=== PATIENT | female | born 1990 | race Caucasian/White ===

== ENCOUNTER 2016-08-24 03:48 | Emergency (ER) | payer MEDICAID ==
[~2016-08-24] VITALS: Ht 157.5 cm; Wt 49.5 kg
[~2016-08-24 03:48] MED LIST: DOCU-144 PO; HYDR-3498 PO; MULT-552 PO; NITR-58 PO; ONDA4TAB35 PO
[2016-08-24 03:58] VITALS: Ht 157.5 cm; Wt 49.5 kg
[2016-08-24] MEDS ORDERED: SOD CHLORIDE 0.9% 1,000 ML IV STA (04:18)
[2016-08-24] MEDS ORDERED: ONDANSETRON 4 MG INJ IV STA (04:18)
[2016-08-24] MEDS ORDERED: ACETAMINOPHEN 500 MG TAB PO STA (04:18)
[2016-08-24] MEDS ORDERED: morphine 2 MG INJ IV STA (04:18)
[2016-08-24 04:30] LABS: ADD SCAN DIFF NO
--- NOTE | 2016-08-24 04:37 | ERD ---
ER Documentation Chief Complaint Date/Time DATE: 08/24/16 TIME: 04:35 Chief Complaint on and off vomiting x 1 week, also c/o low back pain HPI 26-year-old female presents here in emergency department for complaints of lower back pain abdominal pain and vomiting on and off for 1 week. Patient describes the pain as sharp pain, 6/10 scale, complaints with vomiting and on and off episodes of fever. Patient did not take any medications to help with symptoms. Patient denies any hematuria or dysuria. Patient denies any diarrhea or constipation. Patient denies any sick contacts. Patient states that she was lifting weights recently, and states may have caused her back pain. ROS All systems reviewed and are negative except as per history of present illness. Medications Home Meds Active Scripts Ondansetron (Ondansetron Odt) 4 Mg Tab.rapdis, 4 MG PO Q8 Y for NAUSEA AND/OR VOMITING, #30 TAB Prov:WARREN JONES NP 08/24/16 Cyclobenzaprine Hcl* (Cyclobenzaprine Hcl*) 10 Mg Tablet, 10 MG PO TID, #15 TAB Prov:WARREN JONES NP 08/24/16 Hydrocodone/Acetaminophen ([place] 5-325 Tablet) 1 Each Tablet, 1 TAB PO Q6H Y for SEVERE PAIN LEVEL 7-10, #20 TAB Prov:WARREN JONES NP 08/24/16 Docusate Sodium* (Colace*) 100 Mg Capsule, 100 MG PO TID, #30 CAP Prov:CRALOS SEPULVEDA 01/24/16 Multivitamins* (Once Daily*) 1 Tab Tablet, 1 TAB PO DAILY for 30 Days, TAB Prov:ALIN COOK MD 12/09/15 Nitrofurantoin Monohyd Macrocr* (Macrobid*) 100 Mg Capsr, 100 MG PO BID for 7 Days, CAP Prov:ALIN COOK MD 12/09/15 Ondansetron Hcl* (Zofran* ODT) 4 mg -ODT Tab.disper, 4 MG PO Q6 Y for NAUSEA AND /OR VOMITING, #30 TAB Prov:ALIN COOK MD 12/09/15 Hydrocodone Bit-Acetaminophen* ([place]*) 5-325 Mg Tab, 1 TAB PO Q6 Y for PAIN, # 7 TAB Prov:ALIN COOK MD 12/09/15 Allergies Allergies: Coded Allergies: No Known Allergy (Unverified , 08/24/16) PMhx/Soc Medical and Surgical Hx: pt denies Medical Hx, pt denies Surgical Hx History of Surgery: No Anesthesia Reaction: No Hx Neurological Disorder: No Hx Respiratory Disorders: No Hx Cardiac Disorders: No Hx Psychiatric Problems: No Hx Miscellaneous Medical Probl: No Hx Alcohol Use: No Hx Substance Use: No Hx Tobacco Use: No Smoking Status: Never smoker FmHx Family History: No coronary disease, No diabetes, No other Physical Exam Vitals Vital Signs Date Time Temp Pulse Resp B/P Pulse Ox O2 Delivery O2 Flow Rate FiO2 08/24/16 06:46 98.3 77 19 112/69 100 Room Air 08/24/16 03:58 100.0 100 20 113/63 99 Physical Exam GENERAL: The patient is well developed and appropriate for usual state of health, in no apparent distress. CHEST: Clear to auscultation bilaterally. There are no rales, wheezes or rhonchi. HEART: Regular rate and rhythm. No murmurs, clicks, rubs or gallops. No S3 or S4. ABDOMEN: Soft, nontender and nondistended. Good bowel sounds. No rebound or guarding. No gross peritonitis. No gross organomegaly or masses. No Camargo sign or McBurney point tenderness. BACK: No midline or flank tenderness. EXTREMITIES: Equal pulses bilaterally. There is no peripheral clubbing, cyanosis or edema. No focal swelling or erythema. Full range of motion. Grossly neurovascularly intact. NEURO: Alert and oriented. Cranial nerves 2-12 intact. Motor strength in all 4 extremities with 5/5 strength. Sensation grossly intact. Normal speech and gait. SKIN: There is no apparent rash or petechia. The skin is warm and dry. HEMATOLOGIC AND LYMPHATIC: There is no evidence of excessive bruising or lymphedema. No gross cervical, axillary, or inguinal lymphadenopathy. Result Diagram: 08/24/1642208/24/16422 Results 24 hrs Laboratory Tests Test 08/24/16 04:23 08/24/16 04:28 White Blood Count 9.810^3/ul Red Blood Count 4.0910^6/ul Hemoglobin 12.8g/dl Hematocrit 37.1% Mean Corpuscular Volume 90.7fl Mean Corpuscular Hemoglobin 31.3pg Mean Corpuscular Hemoglobin Concent 34.5g/dl Red Cell Distribution Width 12.1% Platelet Count 34752^3/UL Mean Platelet Volume 10.8fl Neutrophils % 80.5% Lymphocytes % 10.8% Monocytes % 7.4% Eosinophils % 0.7% Basophils % 0.1% Nucleated Red Blood Cells % 0.0/100WBC Neutrophils # 7.910^3/ul Lymphocytes # 1.110^3/ul Monocytes # 0.710^3/ul Eosinophils # 0.110^3/ul Basophils # 0.010^3/ul Nucleated Red Blood Cells # 0.010^3/ul Sodium Level 139mmol/L Potassium Level 4.2mmol/L Chloride Level 107mmol/L Carbon Dioxide Level 24mmol/L Anion Gap 12 Blood Urea Nitrogen 15mg/dl Creatinine 0.66mg/dl Glucose Level 104mg/dl Calcium Level 9.3mg/dl Total Bilirubin 0.4mg/dl Direct Bilirubin 0.00mg/dl Indirect Bilirubin 0.4mg/dl Aspartate Amino Transf (AST/SGOT) 25IU/L Alanine Aminotransferase (ALT/SGPT) 33IU/L Alkaline Phosphatase 112IU/L Total Protein 7.7g/dl Albumin 4.3g/dl Globulin 3.40g/dl Albumin/Globulin Ratio 1.26 Lipase 113U/L Urine Color LT. YELLOW Urine Clarity CLEAR Urine pH 6.0 Urine Specific [place] >=1.030 Urine Ketones NEGATIVE Urine Nitrite NEGATIVE Urine Bilirubin NEGATIVE Urine Urobilinogen 0.2 E.U./dL Urine Leukocyte Esterase NEGATIVE Urine Hemoglobin NEGATIVE Urine Glucose NEGATIVE% Urine Total Protein NEGATIVE Current Medications Medications (Trade) Dose Ordered Sig/Ml Route PRN Reason Start Time Stop Time Status Last Admin Dose Admin Sodium Chloride (NS) 1,000 ml @ 1,000 mls/hr Q1H STAT IV 08/24/16 04:18 08/24/16 05:17 DC 08/24/16 04:33 Morphine Sulfate (morphine) 2 mg ONCE STAT IV 08/24/16 04:18 08/24/16 04:20 DC 08/24/16 04:33 Ondansetron HCl (Zofran Inj) 4 mg ONCE STAT IV 08/24/16 04:18 08/24/16 04:20 DC 08/24/16 04:33 Acetaminophen (Tylenol Tab) 500 mg ONCE STAT PO 08/24/16 04:18 08/24/16 04:20 DC 08/24/16 04:33 Patient was given medication for pain here in emergency department, after treatment, patient verbalized feeling much better. Patient's pain is improved.Patient was given Zofran here in the emergency department. After treatment, patient was able to tolerate po fluids here in the emergency department without any vomiting. There is no signs and symptoms of dehydration. Normal saline IV bolus was given here in emergency department for rehydration, patient tolerated IV fluids.Patient was given medicines for fever control here in the emergency department. After treatment, patient temperature improved and lower. Patient appears well and is hemodynamically stable. PROCEDURE: CT ABDOMEN/PELVIS WITHOUT CONTRAST CLINICAL INDICATION: 26-year-old female with abdominal pain. TECHNIQUE: The study was performed utilizing a [employer] VCT 64-slice CT scanner. Direct axial sections were obtained through the abdomen and pelvis without the use of intravenous contrast material. Sagittal and coronal reformations were obtained. One or more of the following dose reduction techniques were utilized: automated exposure control, adjustment of the mA and/ or kV according to patient's size or use of iterative reconstruction technique. The images were reviewed on a PACS workstation. CTD/vol = 4.8 mGy; Total Exam DLP = 262.1 mGy-cm. COMPARISON: CT abdomen/pelvis January 24, 2016. FINDINGS: The lung bases are unremarkable. There is no evidence for significant pleural effusion. The liver has a normal size and contour without focal areas of abnormal density. No intrahepatic nor extrahepatic biliary ductal dilatation is seen. The gallbladder demonstrates no wall thickening nor pericholecystic fluid. No biliary stones are evident. The pancreas is without areas of abnormal attenuation. The spleen is identified and has a normal size without abnormal density. The adrenal glands are unremarkable. The kidneys are without abnormal density. No hydroureteronephrosis nor nephroureterolithiasis is evident. The urinary bladder contains urine. There is mild retained stool within the ascending and transverse colon without obstruction. The appendix is visualized and is without abnormal thickening or surrounding inflammatory reaction. The uterus is anteflexed. There is mild pelvic free fluid. The aortoiliac vessels are without aneurysmal dilatation. The osseous structures are intact. IMPRESSION: 1. No CT evidence for obstructive uropathy or renal calculi. 2. Mild retained stool without obstruction. 3. No CT evidence for appendicitis. 4. Mild pelvic free fluid. .Rian Breaux MD, MD Date Time Electronically viewed and signed by .Rian Breaux MD, on 08/24/2016 06:30 .M/ CC: WARREN JONES NP Procedures/MDM Medical Decision Making: Patient symptoms are nonspecific at this time can be musculoskeletal pain, can be viral. There is low suspicion for abdominal emergencies at this time. Patients abdominal exam is normal at this time. Patients radiology exam does not show any abdominal emergencies at this time. There is low suspicion for appendicitis, cholecystitis, abdominal aortic aneurysms or peritonitis at this time. There is low suspicion for sepsis. Patient appears well and is hemodynamically stable. Disposition: Home. Condition: Stable Prescription [place], Zofran Instructions: Patient is advised to take medications as prescribed. Patient is advised to rest, increase fluid intake and do brat diet for next 1-2 days and progress as tolerated. Patient is advised that if symptoms are worse, severe abdominal pain, uncontrolled vomiting, high fever, severe flank pain, worst signs and symptoms, to return to the emergency department immediately. Otherwise, patient can follow up with primary care doctor in 5-7 days. Departure Diagnosis: Primary Impression: Abdominal pain Abdominal location: lower abdomen, unspecified Qualified Code: R10.30 - Lower abdominal pain Additional Impressions: Vomiting Vomiting type: unspecified Vomiting Intractability: unspecified Nausea presence: unspecified Qualified Code: R11.10 - Vomiting, intractability of vomiting not specified, presence of nausea not specified, unspecified vomiting type Flank pain Condition: Stable Patient Instructions: Abdominal Pain, Flank Pain, Uncertain Cause, Nausea and Vomiting-Adult WARREN OJNES NP Aug 24, 2016 04:37
[2016-08-24 04:45] LABS: BASOPHILS % 0.1 % (0.0-2.0); EOSINOPHILS # 0.1 10^3/ul (0.0-0.5); EOSINOPHILS % 0.7 % (0.0-7.0); HEMATOCRIT 37.1 % (37.0-47.0); HEMOGLOBIN 12.8 g/dl (12.0-16.0); LYMPHOCYTES # 1.1 10^3/ul (0.8-2.9); LYMPHOCYTES % 10.8 % (15.0-51.0); MEAN CORPUSCULAR HEMOGLOBIN 31.3 pg (29.0-33.0); MEAN CORPUSCULAR HGB CONC 34.5 g/dl (32.0-37.0); MEAN CORPUSCULAR VOLUME 90.7 fl (82.0-101.0); MEAN PLATELET VOLUME 10.8 fl (7.4-10.4); MONOCYTE # 0.7 10^3/ul (0.3-0.9); MONOCYTES % 7.4 % (0.0-11.0); NEUTROPHIL # 7.9 10^3/ul (1.6-7.5); NEUTROPHILS % 80.5 % (39.0-77.0); PLATELET COUNT 184 10^3/UL (140-415); RED BLOOD COUNT 4.09 10^6/ul (4.20-5.40); RED CELL DISTRIBUTION WIDTH 12.1 % (11.5-14.5); WHITE BLOOD COUNT 9.8 10^3/ul (4.8-10.8)
[2016-08-24 04:51] LABS: ALBUMIN 4.3 g/dl (3.3-4.9); ALBUMIN/GLOBULIN RATIO 1.26; BILIRUBIN,INDIRECT 0.4 mg/dl (0-1.1); BILIRUBIN,TOTAL 0.4 mg/dl (0.2-1.3); CALCIUM 9.3 mg/dl (8.4-10.2); CREATININE 0.66 mg/dl (0.44-1.00); POTASSIUM 4.2 mmol/L (3.5-5.1); TOTAL PROTEIN 7.7 g/dl (6.1-8.1)
[2016-08-24 05:18] LABS: ADD UMIC NO; URINE BILIRUBIN (Dip) NEGATIVE (NEGATIVE); URINE BLOOD (Dip) NEGATIVE (NEGATIVE); URINE COLOR LT. YELLOW (YELLOW); URINE GLUCOSE (Dip) NEGATIVE (NEGATIVE); URINE KETONES (Dip) NEGATIVE (NEGATIVE); URINE LEUKOCYTE ESTERASE (Dip) NEGATIVE (NEGATIVE); URINE NITRITE (Dip) NEGATIVE (NEGATIVE); URINE TOTAL PROTEIN (Dip) NEGATIVE (NEGATIVE); URINE UROBILINOGEN (Dip) 0.2 E.U./dL (0.1-1.0)
[2016-08-24] MEDS ORDERED: ONDA4TAB14 PO (06:02)
[2016-08-24] MEDS ORDERED: HYDR-906 PO (06:02)
[2016-08-24] MEDS ORDERED: CYCL-319 PO (06:02)
--- NOTE | 2016-08-24 06:30 | RADRPT ---
PROCEDURE: CT ABDOMEN/PELVIS WITHOUT CONTRAST CLINICAL INDICATION: 26-year-old female with abdominal pain. TECHNIQUE: The study was performed utilizing a GE [employer] VCT 64-slice CT scanner. Direct axia l sections were obtained through the abdomen and pelvis without the use of intravenous contrast mate rial. Sagittal and coronal reformations were obtained. One or more of the following dose reduction t echniques were utilized: automated exposure control, adjustment of the mA and/or kV according to pat ient's size or use of iterative reconstruction technique. The images were reviewed on a PACS workst [employer]. CTD/vol = 4.8 mGy; Total Exam DLP = 262.1 mGy-cm. COMPARISON: CT abdomen/pelvis January 24, 2016. FINDINGS: The lung bases are unremarkable. There is no evidence for significant pleural effusion. The liver has a normal size and contour without focal areas of abnormal density. No intrahepatic nor extrahepa tic biliary ductal dilatation is seen. The gallbladder demonstrates no wall thickening nor perichole cystic fluid. No biliary stones are evident. The pancreas is without areas of abnormal attenuation. The spleen is identified and has a normal size without abnormal density. The adrenal glands are unr emarkable. The kidneys are without abnormal density. No hydroureteronephrosis nor nephroureterolithi asis is evident. The urinary bladder contains urine. There is mild retained stool within the ascendi ng and transverse colon without obstruction. The appendix is visualized and is without abnormal thi ckening or surrounding inflammatory reaction. The uterus is anteflexed. There is mild pelvic free f luid. The aortoiliac vessels are without aneurysmal dilatation. The osseous structures are intact. IMPRESSION: 1. No CT evidence for obstructive uropathy or renal calculi. 2. Mild retained stool without obstruction. 3. No CT evidence for appendicitis. 4. Mild pelvic free fluid. .Rian Breaux MD, Date Time Electronically viewed and signed by .Rian Breaux MD, MD on 08/24/2016 06:30 .Mookie
[2016-08-24 06:46] VITALS: BP 112/69; PULSE 77; RESP 19; TEMP 98.3
[2016-08-25] MEDS ORDERED: IBUP-1542 PO (18:07)
[2016-08-25] MEDS ORDERED: LEVO500T72 PO (18:07)
[2016-08-25] MEDS ORDERED: OXYC-279 PO (18:09)
== END 2016-08-24 06:49 | disposition home or self-care (01) ==
LOC: FTE 03:48
DX: R10.30 Lower abdominal pain, unspecified (principal); R11.10 Vomiting, unspecified
CPT/HCPCS: 36415; 74176; 80053; 81003; 83690; 85025; 96374; 96375; J2270; J2405; J7030; Z7502; Z7610

== ENCOUNTER 2016-08-25 14:55 | Emergency (ER) | payer MEDICAID ==
[~2016-08-25] VITALS: Ht 160 cm; Wt 49.5 kg
[~2016-08-25 14:55] MED LIST changes: +CYCL-319 PO; +HYDR-906 PO; +ONDA4TAB14 PO
[2016-08-25 15:10] VITALS: Ht 160 cm; Wt 49.5 kg
[2016-08-25] MEDS ORDERED: KETOROLAC 15 MG INJ IV STA (16:16)
[2016-08-25] MEDS ORDERED: ONDANSETRON 4 MG INJ IV STA (16:16)
[2016-08-25] MEDS ORDERED: SOD CHLORIDE 0.9% 1,000 ML IV STA (16:16)
[2016-08-25] MEDS ORDERED: CEFTRIAXONE 1 GM/50 ML (PMX) 50 ML IVPB ONE (16:30)
[2016-08-25 16:47] LABS: ADD SCAN DIFF NO
[2016-08-25 16:51] LABS: HEMATOCRIT 37.7 % (37.0-47.0); HEMOGLOBIN 12.7 g/dl (12.0-16.0); LYMPHOCYTES % 9.9 % (15.0-51.0); MEAN CORPUSCULAR HEMOGLOBIN 30.2 pg (29.0-33.0); MEAN CORPUSCULAR HGB CONC 33.7 g/dl (32.0-37.0); MEAN CORPUSCULAR VOLUME 89.8 fl (82.0-101.0); MEAN PLATELET VOLUME 10.3 fl (7.4-10.4); MONOCYTES % 9.4 % (0.0-11.0); NEUTROPHIL # 8.3 10^3/ul (1.6-7.5); NEUTROPHILS % 80.4 % (39.0-77.0); PLATELET COUNT 175 10^3/UL (140-415); WHITE BLOOD COUNT 10.4 10^3/ul (4.8-10.8)
[2016-08-25 17:05] LABS: ALBUMIN 4.2 g/dl (3.3-4.9)
[2016-08-25 17:06] LABS: POTASSIUM 3.6 mmol/L (3.5-5.1)
[2016-08-25 17:08] LABS: ALBUMIN/GLOBULIN RATIO 1.2; BILIRUBIN,INDIRECT 0.7 mg/dl (0-1.1); BILIRUBIN,TOTAL 0.7 mg/dl (0.2-1.3); CALCIUM 8.8 mg/dl (8.4-10.2); CREATININE 0.75 mg/dl (0.44-1.00); TOTAL PROTEIN 7.7 g/dl (6.1-8.1)
[2016-08-25] MEDS ORDERED: morphine 4 MG/ML VIAL IV STA (17:08)
[2016-08-25 17:13] LABS: ADD UMIC YES; URINE BILIRUBIN (Dip) NEGATIVE (NEGATIVE); URINE BLOOD (Dip) 3+ (NEGATIVE); URINE COLOR LT. YELLOW (YELLOW); URINE GLUCOSE (Dip) NEGATIVE (NEGATIVE); URINE KETONES (Dip) 3+ (NEGATIVE); URINE LEUKOCYTE ESTERASE (Dip) 1+ (NEGATIVE); URINE NITRITE (Dip) NEGATIVE (NEGATIVE); URINE TOTAL PROTEIN (Dip) NEGATIVE (NEGATIVE); URINE UROBILINOGEN (Dip) 0.2 E.U./dL (0.1-1.0)
[2016-08-25 17:27] LABS: BACTERIA,URINE MODERATE; MUCUS,URINE FEW; SQUAMOUS EPITHELIAL CELL,UR MODERATE
--- NOTE | 2016-08-25 17:37 | RADRPT ---
PROCEDURE: CT scan of the abdomen and pelvis without IV contrast. CLINICAL INDICATION: Abdominal pain. TECHNIQUE: Thin section axial, coronal and sagittal images were performed through the abdomen and pelvis without contrast. Radiation Dose: CTDI: 4.85 and DLP: 256 One or more of the following dose reduction techniques were used: - Automated exposure control. - Adjustment of the mA and/or kV according to patient size. Use of iterative reconstruction technique. COMPARISON: Chest x-ray 06/07/2016 06:18 a.m. FINDINGS: Soft tissues: Bilateral asymmetric extremely dense breast tissue is identified. The soft tissues are otherwise normal. Lungs and pleural spaces: There is peribronchial cuffing pain bilateral ground-glass infiltrates in the bases of the lungs. There is a 3.4 mm calcified granuloma in the right lower lobe. This is of the field of view on the prior study. No pleural effusion is identified. Heart: The heart is normal in size. The liver, common bile duct and gallbladder: The liver measures 13 cm AP. No hepatic mass or intra hepatic biliary ductal dilatation is identified. The gallbladder and gallbladder wall are normal. Gastrointestinal: There is no hiatal hernia. The stomach is incompletely distended. The small michael l loops are normal. There is scattered air and fecal material in the colon. The vermiform appendix is normal. There is no evidence of diverticulosis or diverticulitis. Pancreas: Normal. The extrahepatic common bile duct is normal measuring 4 mm. Kidneys, bladder and adrenal glands : The adrenal glands and kidneys are normal. Spleen: The spleen is normal. Lymph nodes: No enlarged retroperitoneal, periportal, mesenteric or pelvic sidewall lymph nodes are identified. No enlarged inguinal lymph node is identified. Reproductive system and pelvis : The uterus is anteflexed measuring 10.1 cm sagittal by 5 cm AP by 6 .8 cm transverse. No abnormal adnexal mass is identified. There is moderate fluid in the cul-de-sac which is slightly greater when compared to the prior study. The ovaries are not visualized. Bony elements: Normal. Vasculature: Normal. IMPRESSION: 1. There is a small to moderate amount of fluid in the cul-de-sac. This is slightly greater as com pared to 01/24/2016. 2. No acute intra-abdominal process is identified. There is no evidence of appendicitis, diverticu litis or diverticulosis. The vermiform appendix is not clearly visualized. 3. 3.4 mm calcified granuloma in the right lower lobe. Ground-glass infiltrates in the bases of th e lungs is likely result of atelectasis. 4. No significant changes noted compared to to CT abdomen pelvis dated 01/24/2016. A small bowel e nteritis would not be easily detected on this study that might be better visualized if oral contrast was administered. RPTAT:AAJJ Darryl Moran Physician Date Time Electronically viewed and signed by Darryl Moran, Physician on 08/25/2016 17:36 GIANNA/
[2016-08-25] MEDS ORDERED: IBUP-1542 PO (18:07)
[2016-08-25] MEDS ORDERED: LEVO500T72 PO (18:07)
[2016-08-25] MEDS ORDERED: OXYC-279 PO (18:09)
[2016-08-25 18:32] VITALS: BP 127/73; PULSE 89; RESP 16; TEMP 98.7
--- NOTE | 2016-08-25 22:46 | ERD ---
ER Documentation Chief Complaint Date/Time DATE: 08/25/16 TIME: 22:[address], FEVER, MALAISE SINCE YESTERDAY. TYLENOL TAKEN CODIFIER AT 1200. HPI 26-year-old woman presents with 1 day of fever, weakness, body aches, sore throat and pain with swallowing. She denies cough, no rash, no vaginal discharge, no chest pain or shortness of breath, no headache or blurry vision, no neck pain or stiffness. She denies recent travel, sick contacts, or recent antibiotic use. ROS All systems reviewed and are negative except as per history of present illness. Medications Home Meds Active Scripts Oxycodone HCl/Acetaminophen (Percocet 5-325 mg Tablet) 1 Each Tablet, 1 EACH PO TID for PAIN LEVEL 6-10, #9 TAB Prov:MICHELE HORTON MD 08/25/16 Ibuprofen* (Motrin*) 600 Mg Tab, 600 MG PO Q8 for FEVER, #30 TAB Prov:MICHELE HORTON MD 08/25/16 Levofloxacin* (Levaquin*) 500 Mg Tablet, 500 MG PO DAILY for 7 Days, TAB Prov:MICHELE HORTON MD 08/25/16 Ondansetron (Ondansetron Odt) 4 Mg Tab.rapdis, 4 MG PO Q8 Y for NAUSEA AND/OR VOMITING, #30 TAB Prov:WARREN JONES NP 08/24/16 Cyclobenzaprine Hcl* (Cyclobenzaprine Hcl*) 10 Mg Tablet, 10 MG PO TID, #15 TAB Prov:WARREN JONES NP 08/24/16 Hydrocodone/Acetaminophen ([place] 5-325 Tablet) 1 Each Tablet, 1 TAB PO Q6H Y for SEVERE PAIN LEVEL 7-10, #20 TAB Prov:WARREN JONES NP 08/24/16 Docusate Sodium* (Colace*) 100 Mg Capsule, 100 MG PO TID, #30 CAP Prov:CARLOS SEPULVEDA 01/24/16 Multivitamins* (Once Daily*) 1 Tab Tablet, 1 TAB PO DAILY for 30 Days, TAB Prov:ALIN COOK MD 12/09/15 Nitrofurantoin Monohyd Macrocr* (Macrobid*) 100 Mg Capsr, 100 MG PO BID for 7 Days, CAP Prov:ALIN COOK MD 12/09/15 Ondansetron Hcl* (Zofran* ODT) 4 mg -ODT Tab.disper, 4 MG PO Q6 Y for NAUSEA AND /OR VOMITING, #30 TAB Prov:ALIN COOK MD 12/09/15 Hydrocodone Bit-Acetaminophen* ([place]*) 5-325 Mg Tab, 1 TAB PO Q6 Y for PAIN, # 7 TAB Prov:ALIN COOK MD 12/09/15 Allergies Allergies: Coded Allergies: No Known Allergy (Unverified , 08/24/16) PMhx/Soc None History of Surgery: No Anesthesia Reaction: No Hx Neurological Disorder: No Hx Respiratory Disorders: No Hx Cardiac Disorders: No Hx Psychiatric Problems: No Hx Miscellaneous Medical Probl: No Hx Alcohol Use: No Hx Substance Use: No Hx Tobacco Use: No Smoking Status: Never smoker FmHx Family History: No diabetes Physical Exam Vitals Vital Signs Date Time Temp Pulse Resp B/P Pulse Ox O2 Delivery O2 Flow Rate FiO2 08/25/16 18:32 98.7 89 16 127/73 98 Room Air 08/25/16 15:10 102.5 119 16 131/77 98 Physical Exam GENERAL: Well-developed, well-nourished, febrile HEENT: Moist mucous membranes, pink conjunctiva, no cervical spine tenderness or step-off deformities, no goiter, no jaundice or icterus, extraocular movements intact without pain. Positive pharyngeal erythema with exudates, uvula is midline NEURO: Alert and oriented 3, cranial nerves II through XII intact bilaterally, pupils equal round reactive to light, no focal deficits or facial asymmetry, sensation intact distally Strength 5/5 in upper and lower extremities bilaterally CARDIAC: Tachycardic and regular, no murmurs rubs or gallops LUNGS: Clear bilaterally no wheezing crackles or stridor ABDOMEN: Soft nontender, no guarding, no rigidity, no rebound, no psoas sign no obturator sign. Normoactive bowel sounds SKIN: Warm and dry to touch, no abrasions, contusions, or hematomas, no lacerations, no ecchymosis, no target lesions, and without ulcers EXTREMITIES: No clubbing cyanosis or edema, calves are bilaterally symmetrical, no Homans sign, no popliteal cord sign. Distal pulses equal and bilateral PSYCH: Normal affect without agitation or irritability Result Diagram: 08/25/16 1640 08/25/16 1640 Results 24 hrs Laboratory Tests Test 08/25/16 16:30 08/25/16 16:40 Urine Color LT. YELLOW Urine Clarity SLIGHTLY CLOUDY Urine pH 5.5 Urine Specific [place] 1.020 Urine Ketones 3+ Urine Nitrite NEGATIVE Urine Bilirubin NEGATIVE Urine Urobilinogen 0.2 E.U./dL Urine Leukocyte Esterase 1+ Urine Microscopic RBC 5-10/HPF Urine Microscopic WBC 5-10/HPF Urine Squamous Epithelial Cells MODERATE Urine Bacteria MODERATE Urine Mucus FEW Urine Hemoglobin 3+ Urine Glucose NEGATIVE% Urine Total Protein NEGATIVE White Blood Count 10.410^3/ul Red Blood Count 4.2010^6/ul Hemoglobin 12.7g/dl Hematocrit 37.7% Mean Corpuscular Volume 89.8fl Mean Corpuscular Hemoglobin 30.2pg Mean Corpuscular Hemoglobin Concent 33.7g/dl Red Cell Distribution Width 12.0% Platelet Count 06327^3/UL Mean Platelet Volume 10.3fl Neutrophils % 80.4% Lymphocytes % 9.9% Monocytes % 9.4% Eosinophils % 0.0% Basophils % 0.0% Nucleated Red Blood Cells % 0.0/100WBC Neutrophils # 8.310^3/ul Lymphocytes # 1.010^3/ul Monocytes # 1.010^3/ul Eosinophils # 0.010^3/ul Basophils # 0.010^3/ul Nucleated Red Blood Cells # 0.010^3/ul Sodium Level 139mmol/L Potassium Level 3.6mmol/L Chloride Level 100mmol/L Carbon Dioxide Level 25mmol/L Anion Gap 18 Blood Urea Nitrogen 6mg/dl Creatinine 0.75mg/dl Glucose Level 105mg/dl Calcium Level 8.8mg/dl Total Bilirubin 0.7mg/dl Direct Bilirubin 0.00mg/dl Indirect Bilirubin 0.7mg/dl Aspartate Amino Transf (AST/SGOT) 26IU/L Alanine Aminotransferase (ALT/SGPT) 32IU/L Alkaline Phosphatase 72IU/L Total Protein 7.7g/dl Albumin 4.2g/dl Globulin 3.50g/dl Albumin/Globulin Ratio 1.20 Lipase 36U/L Current Medications Medications (Trade) Dose Ordered Sig/Ml Route PRN Reason Start Time Stop Time Status Last Admin Dose Admin Sodium Chloride (NS) 1,000 ml @ 2,000 mls/hr Q30M STAT IV 08/25/16 16:16 08/25/16 16:45 DC 08/25/16 16:35 Ondansetron HCl (Zofran Inj) 4 mg ONCE STAT IV 08/25/16 16:16 08/25/16 16:18 DC 08/25/16 16:30 Ketorolac Tromethamine 15 mg 15 mg ONCE STAT IV 08/25/16 16:16 08/25/16 16:18 DC 08/25/16 16:30 Ceftriaxone Sodium (Rocephin) 50 ml @ 100 mls/hr ONCE ONCE IVPB 08/25/16 16:30 08/25/16 16:59 DC 08/25/16 16:30 Morphine Sulfate (morphine) 4 mg ONCE STAT IV 08/25/16 17:08 08/25/16 17:11 DC 08/25/16 17:45 Procedures/MDM IV line was established patient was placed on environmental monitoring technician rhythm strip revealed a sinus tachycardia at 120 bpm with upright P and T waves. Patient was febrile. Given her high fever, body aches, and low back pain and a CT scan of abdomen and pelvis was performed that was negative for acute inflammatory infectious pathology. Please refer to radiologist dictation for full report. I administered 2 L normal saline intravenously, Toradol 15 mg IV, Zofran 4 mg IV , and ceftriaxone 1 g IV. For later complaints of throat pain I administered morphine 4 mg IV with good pain control. Chest X-ray 1V Interpreted by me: Soft Tissue: No acute abnormalities Bones: No acute abnormalities Mediastinum/Cardiac Silhouette/Lungs: No acute abnormalities CBC and electrolytes were unremarkable, liver function tests are normal, test negative, urine analysis was positive for infection leukocytes and elevated urine WBCs. Patient was treated here with ceftriaxone 1 g IV I will be prescribing her levofloxacin 500 mg daily 7 days for UTI and streptococcal pharyngitis. Differential diagnoses considered, included but not limited to acute coronary syndrome, pulmonary embolism, aortic dissection, abdominal aortic aneurysm, sepsis, stroke, meningitis, encephalitis, pneumonia, appendicitis, cholecystitis , bowel obstruction, pyelonephritis, nephrolithiasis, cystitis, as well as metabolic, hematologic, and electrolyte abnormalities. As well as abscess, cellulitis, fractures, and dislocations. Patient feels much better at this time, and vital signs are normal, symptoms have improved. I did give strict instructions to return to the ED if symptoms continue or worsen, patient will otherwise follow-up with primary care physician. Patient understood instructions and agreed to plan. Departure Diagnosis: Primary Impression: UTI (urinary tract infection) Urinary tract infection type: acute cystitis Hematuria presence: without hematuria Qualified Code: N30.00 - Acute cystitis without hematuria Additional Impression: Pharyngitis Pharyngitis/tonsillitis etiology: unspecified etiology Qualified Code: J02.9 - Pharyngitis, unspecified etiology Condition: Good Patient Instructions: Pharyngitis, Strep (Presumed), Bladder Infection, Female (Adult) MICHELE HORTON MD Aug 25, 2016 22:46
== END 2016-08-25 18:35 | disposition home or self-care (01) ==
LOC: FTE 14:55
DX: N30.00 Acute cystitis without hematuria (principal)
CPT/HCPCS: 36415; 74176; 80053; 81001; 83690; 85025; 87086; 96374; 96375; J0696; J1885; J2270; J2405; J7030; Z7502; 81003

== ENCOUNTER 2017-01-15 09:08 | Emergency (ER) | payer MEDICAID ==
[~2017-01-15] VITALS: Wt 54.0 kg
[~2017-01-15 09:08] MED LIST changes: +IBUP-1542 PO; +LEVO500T72 PO; +OXYC-279 PO
--- NOTE | 2017-01-15 10:35 | ERD ---
ER Documentation Chief Complaint Date/Time DATE: 01/15/17 TIME: 10:34 Chief Complaint PAIN WITH URINATION X3 DAYS HPI 26-year-old female presents with painful urination urgency and suprapubic abdominal pain for 3 days. She describes burning pain upon urination, slight urgency as well. She also has a frontal pressure-like headache with this. She reports sharp pain in the suprapubic region, no fevers or chills, vomiting or diarrhea. ROS All systems reviewed and are negative except as per history of present illness. Medications Home Meds Active Scripts Nitrofurantoin Monohyd Macrocr* (Macrobid*) 100 Mg Capsr, 100 MG PO BID for 7 Days, CAP Prov:YIMI BOONE PA-C 01/15/17 Oxycodone HCl/Acetaminophen (Percocet 5-325 mg Tablet) 1 Each Tablet, 1 EACH PO TID for PAIN LEVEL 6-10, #9 TAB Prov:MICHELE HORTON MD 08/25/16 Ibuprofen* (Motrin*) 600 Mg Tab, 600 MG PO Q8 for FEVER, #30 TAB Prov:MICHELE HORTON MD 08/25/16 Levofloxacin* (Levaquin*) 500 Mg Tablet, 500 MG PO DAILY for 7 Days, TAB Prov:MICHELE HORTON MD 08/25/16 Ondansetron (Ondansetron Odt) 4 Mg Tab.rapdis, 4 MG PO Q8 Y for NAUSEA AND/OR VOMITING, #30 TAB Prov:WARREN JONES NP 08/24/16 Cyclobenzaprine Hcl* (Cyclobenzaprine Hcl*) 10 Mg Tablet, 10 MG PO TID, #15 TAB Prov:WARREN JONES NP 08/24/16 Hydrocodone/Acetaminophen ([place] 5-325 Tablet) 1 Each Tablet, 1 TAB PO Q6H Y for SEVERE PAIN LEVEL 7-10, #20 TAB Prov:WARREN JONES NP 08/24/16 Docusate Sodium* (Colace*) 100 Mg Capsule, 100 MG PO TID, #30 CAP Prov:CARLOS SEPULVEDA 01/24/16 Multivitamins* (Once Daily*) 1 Tab Tablet, 1 TAB PO DAILY for 30 Days, TAB Prov:ALIN COOK MD 12/09/15 Nitrofurantoin Monohyd Macrocr* (Macrobid*) 100 Mg Capsr, 100 MG PO BID for 7 Days, CAP Prov:ALIN COOK MD 12/09/15 Ondansetron Hcl* (Zofran* ODT) 4 mg -ODT Tab.disper, 4 MG PO Q6 Y for NAUSEA AND /OR VOMITING, #30 TAB Prov:ALIN COOK MD 12/09/15 Hydrocodone Bit-Acetaminophen* ([place]*) 5-325 Mg Tab, 1 TAB PO Q6 Y for PAIN, # 7 TAB Prov:ALIN COOK MD 12/09/15 Allergies Allergies: Coded Allergies: No Known Allergy (Unverified , 01/15/17) PMhx/Soc Medical and Surgical Hx: pt denies Medical Hx, pt denies Surgical Hx History of Surgery: No Anesthesia Reaction: No Hx Neurological Disorder: No Hx Respiratory Disorders: No Hx Cardiac Disorders: No Hx Psychiatric Problems: No Hx Miscellaneous Medical Probl: No Hx Alcohol Use: No Hx Substance Use: No Hx Tobacco Use: No Smoking Status: Never smoker Physical Exam Vitals Vital Signs Date Time Temp Pulse Resp B/P Pulse Ox O2 Delivery O2 Flow Rate FiO2 01/15/17 09:14 98.0 75 17 110/53 99 Physical Exam General: Well-developed, well-nourished. The patient appears in no acute distress. HEENT: Head is normocephalic, atraumatic. No scleral icterus\ Neck: Supple. Nontender. Lungs: Clear to auscultation. Normal air movement. Heart: Regular rate and rhythm. S1 and S2 are normal. No murmurs, gallops, or rubs. Abdomen: Soft tender to palpation in the suprapubic region only, without rebound , guarding or tenderness McBurney's nondistended. Bowel sounds are normoactive. Extremities: No clubbing or cyanosis. Normal pulses. Moving extremities x 4. No weakness. Neurologic: Alert and oriented 3. No focal deficits. Skin: Normal turgor. No rash or lesions. Results 24 hrs Laboratory Tests Test 01/15/17 10:37 Urine Color YELLOW Urine Clarity CLOUDY Urine pH 6.0 Urine Specific [place] 1.026 Urine Ketones NEGATIVEmg/dL Urine Nitrite NEGATIVEmg/dL Urine Bilirubin NEGATIVEmg/dL Urine Urobilinogen NEGATIVEmg/dL Urine Leukocyte Esterase 3+Lisa/ul Urine Microscopic RBC > 182/HPF Urine Microscopic WBC > 182/HPF Urine Squamous Epithelial Cells FEW/HPF Urine Hemoglobin 3+mg/dL Urine Glucose NEGATIVEmg/dL Urine Total Protein 2+mg/dl Urine Test NEGATIVE Current Medications Medications (Trade) Dose Ordered Sig/Ml Route PRN Reason Start Time Stop Time Status Last Admin Dose Admin Nitrofurantoin Macrocrystals (Macrobid) 100 mg ONCE ONCE PO 01/15/17 11:30 01/15/17 11:31 01/15/17 11:22 Procedures/MDM 26-year-old female presents with painful urination, significant abdominal pain with evidence of a urinary tract infection and a urine analysis, was given Macrobid and will be continued at home. Patient does not have any systemic complaints, no signs of pyelonephritis, sepsis, acute appendicitis, ovarian torsion, PID, cervicitis. Departure Diagnosis: Primary Impression: UTI (urinary tract infection) Condition: Good YIMI BOONE PA-C Jan 15, 2017 10:35
[2017-01-15 11:02] LABS: ADD UMIC YES; UR ASCORBIC ACID NEGATIVE (NEGATIVE); UR BILIRUBIN (Dip) NEGATIVE (NEGATIVE); UR BLOOD (Dip) 3+ mg/dL (NEGATIVE); UR CLARITY CLOUDY (CLEAR); UR COLOR YELLOW (YELLOW); UR GLUCOSE (Dip) NEGATIVE (NEGATIVE); UR KETONES (Dip) NEGATIVE (NEGATIVE); UR LEUKOCYTE ESTERASE (Dip) 3+ Leu/ul (NEGATIVE); UR NITRITE (Dip) NEGATIVE (NEGATIVE); UR RBC > 182 /HPF (0-5); UR SPECIFIC GRAVITY (Dip) 1.026 (1.003-1.030); UR SQUAMOUS EPITHELIAL CELL FEW /HPF (FEW); UR TOTAL PROTEIN (Dip) 2+ mg/dl (NEGATIVE); UR UROBILINOGEN (Dip) NEGATIVE (NEGATIVE)
[2017-01-15] MEDS ORDERED: NITR-58 PO (11:16)
[2017-01-15] MEDS ORDERED: NITROFURANTOIN (SR) 100 MG CAP PO ONE (11:30)
== END 2017-01-15 11:25 | disposition home or self-care (01) ==
LOC: FTE 09:08
DX: N39.0 Urinary tract infection, site not specified (principal)
CPT/HCPCS: 81001; 84703; Z7502; Z7610; 99283

== ENCOUNTER 2017-04-28 14:33 | Emergency (ER) | payer MEDICAID ==
[~2017-04-28] VITALS: Ht 152.4 cm; Wt 50.2 kg
[2017-04-28 14:43] VITALS: Ht 152.4 cm; Wt 50.2 kg
[2017-04-28] MEDS ORDERED: SOD CHLORIDE 0.9% 500 ML IV STA (16:59)
[2017-04-28] MEDS ORDERED: ONDANSETRON 4 MG INJ IV STA ×2 (16:59→17:03)
[2017-04-28] MEDS ORDERED: FAMOTIDINE 20 MG INJ IV STA (16:59)
--- NOTE | 2017-04-28 16:59 | ERD ---
ER Documentation Chief Complaint Chief Complaint VOMITING WITH ABD CRAMPS , 2 MONTHS PREG HPI 27-year-old female, with LMP 03/05/17, presents to the emergency department complaining of persistent nausea and vomiting for the last 4 weeks. The patient denies fevers, chills, headache, abdominal pain, no vaginal bleeding , no vaginal discharge. Established care. ROS A 12-point review of systems was performed and negative other than presented in the history of present illness. SYSTEMIC symptoms: no fever, chills, no night sweats, no weight loss EYE symptoms: No blurred vision, no eye discharge OTOLARYNGEAL symptoms: No hearing loss. No ear pain, no sore throat CARDIOVASCULAR symptoms: No chest pain or discomfort, no palpitations. PULMONARY symptoms: No dyspnea, no cough, no wheezing. GASTROINTESTINAL symptoms: Per HPI MUSCULOSKELETAL symptoms: No arthralgias, no muscle aches. NEUROLOGY symptoms: No confusion, no syncope, no numbness or tingling. SKIN: No rashes Medications Home Meds Active Scripts Doxylamine/Pyridoxine Hcl ([place]LE[place] DR 10-10 MG TABLET) 1 Each Tablet.dr, 2 TAB PO QHS for NAUSEA for 14 Days, TAB Prov:LIANA HALL MD 04/28/17 Nitrofurantoin Monohyd Macrocr* (Macrobid*) 100 Mg Capsr, 100 MG PO BID for 7 Days, CAP Prov:LIANA HALL MD 04/28/17 Nitrofurantoin Monohyd Macrocr* (Macrobid*) 100 Mg Capsr, 100 MG PO BID for 7 Days, CAP Prov:YIMI BOONE PA-C 01/15/17 Oxycodone HCl/Acetaminophen (Percocet 5-325 mg Tablet) 1 Each Tablet, 1 EACH PO TID for PAIN LEVEL 6-10, #9 TAB Prov:MICHELE HORTON MD 08/25/16 Ibuprofen* (Motrin*) 600 Mg Tab, 600 MG PO Q8 for FEVER, #30 TAB Prov:MICHELE HORTON MD 08/25/16 Levofloxacin* (Levaquin*) 500 Mg Tablet, 500 MG PO DAILY for 7 Days, TAB Prov:MICHELE HORTON MD 08/25/16 Ondansetron (Ondansetron Odt) 4 Mg Tab.rapdis, 4 MG PO Q8 Y for NAUSEA AND/OR VOMITING, #30 TAB Prov:WARREN JONES NP 08/24/16 Cyclobenzaprine Hcl* (Cyclobenzaprine Hcl*) 10 Mg Tablet, 10 MG PO TID, #15 TAB Prov:WARREN JONES NP 08/24/16 Hydrocodone/Acetaminophen ([place] 5-325 Tablet) 1 Each Tablet, 1 TAB PO Q6H Y for SEVERE PAIN LEVEL 7-10, #20 TAB Prov:WARREN JONES [employer]IST 08/24/16 Docusate Sodium* (Colace*) 100 Mg Capsule, 100 MG PO TID, #30 CAP Prov:CARLOS SEPULVEDA 01/24/16 Multivitamins* (Once Daily*) 1 Tab Tablet, 1 TAB PO DAILY for 30 Days, TAB Prov:ALIN COOK MD 12/09/15 Nitrofurantoin Monohyd Macrocr* (Macrobid*) 100 Mg Capsr, 100 MG PO BID for 7 Days, CAP Prov:AILN COOK MD 12/09/15 Ondansetron Hcl* (Zofran* ODT) 4 mg -ODT Tab.disper, 4 MG PO Q6 Y for NAUSEA AND /OR VOMITING, #30 TAB Prov:ALIN COOK MD 12/09/15 Hydrocodone Bit-Acetaminophen* ([place]*) 5-325 Mg Tab, 1 TAB PO Q6 Y for PAIN, # 7 TAB Prov:ALIN COOK MD 12/09/15 Allergies Allergies: Coded Allergies: No Known Allergy (Unverified , 01/15/17) PMhx/Soc Medical and Surgical Hx: pt denies Medical Hx, pt denies Surgical Hx History of Surgery: No Anesthesia Reaction: No Hx Neurological Disorder: No Hx Respiratory Disorders: No Hx Cardiac Disorders: No Hx Psychiatric Problems: No Hx Miscellaneous Medical Probl: No Hx Alcohol Use: No Hx Substance Use: No Hx Tobacco Use: No Smoking Status: Never smoker Physical Exam Vitals Vital Signs Date Time Temp Pulse Resp B/P Pulse Ox O2 Delivery O2 Flow Rate FiO2 04/28/17 14:43 99.0 90 16 122/64 97 Physical Exam Patient is in mild distress due to nausea, vital signs stable. Alert and fully oriented. EYES: PERRLA, EOMI, Sclera and conjunctiva appear normal. EARS: Canals clear, tympanic membranes WNL THROAT: Normal oropharynx. NECK: Supple, No lymphadenopathy. Full ROM without pain or tenderness. HEART: RRR, no rubs, murmurs, clicks or gallops. LUNGS: Clear to auscultation. ABDOMEN: Soft, non-tender without masses or hepatosplenomegaly. EXTREMITIES: No edema bilaterally. BACK: Full ROM, no deformity, normal back exam NEURO: Cranial nerves grossly intact, no motor or sensory deficit Result Diagram: 04/28/17173904/28/171739 Results 24 hrs Laboratory Tests Test 04/28/17 17:40 White Blood Count 5.610^3/ul Red Blood Count 4.2210^6/ul Hemoglobin 12.8g/dl Hematocrit 36.4% Mean Corpuscular Volume 86.3fl Mean Corpuscular Hemoglobin 30.3pg Mean Corpuscular Hemoglobin Concent 35.2g/dl Red Cell Distribution Width 11.6% Platelet Count 73706^3/UL Mean Platelet Volume 10.1fl Neutrophils % 65.2% Lymphocytes % 27.3% Monocytes % 6.6% Eosinophils % 0.5% Basophils % 0.2% Nucleated Red Blood Cells % 0.0/100WBC Neutrophils # 3.710^3/ul Lymphocytes # 1.510^3/ul Monocytes # 0.410^3/ul Eosinophils # 0.010^3/ul Basophils # 0.010^3/ul Nucleated Red Blood Cells # 0.010^3/ul Urine Color YELLOW Urine Clarity SLIGHTLY CLOUDY Urine pH 6.0 Urine Specific [place] 1.027 Urine Ketones 1+mg/dL Urine Nitrite NEGATIVEmg/dL Urine Bilirubin NEGATIVEmg/dL Urine Urobilinogen 1+mg/dL Urine Leukocyte Esterase 1+Lisa/ul Urine Microscopic RBC 4/HPF Urine Microscopic WBC 7/HPF Urine Squamous Epithelial Cells FEW/HPF Urine Calcium Oxalate Crystals MODERATE/HPF Urine Bacteria FEW/HPF Urine Mucus MANY/HPF Urine Hemoglobin NEGATIVEmg/dL Urine Glucose 1+mg/dL Urine Total Protein NEGATIVEmg/dl Sodium Level 140mmol/L Potassium Level 4.1mmol/L Chloride Level 103mmol/L Carbon Dioxide Level 25mmol/L Anion Gap 16 Blood Urea Nitrogen 8mg/dl Creatinine 0.65mg/dl Glucose Level 92mg/dl Calcium Level 9.7mg/dl Current Medications Medications (Trade) Dose Ordered Sig/Ml Route PRN Reason Start Time Stop Time Status Last Admin Dose Admin Sodium Chloride (NS) 500 ml @ 500 mls/hr Q1H STAT IV 04/28/17 16:59 04/28/17 17:03 DC Ondansetron HCl (Zofran Inj) 4 mg ONCE STAT IV 04/28/17 16:59 04/28/17 17:03 DC Famotidine 20 mg 20 mg ONCE STAT IV 04/28/17 16:59 04/28/17 17:03 DC Sodium Chloride (NS) 1,000 ml @ 1,000 mls/hr Q1H STAT IV 04/28/17 17:03 04/28/17 18:02 DC 04/28/17 17:38 Ondansetron HCl (Zofran Inj) 4 mg ONCE STAT IV 04/28/17 17:03 04/28/17 17:04 DC 04/28/17 17:38 [place] [id number] Radiology Main Line: [phone] DIAGNOSTIC IMAGING REPORT Patient: KRYSTAL AVILA : 1990 Age: 27 Sex: F MR #: [id number] DOS: 04/28/17 1703 Ordering MD: LIANA HALL MD Location: [facility] Room/Bed: PROCEDURE: OB Ultrasound. CLINICAL INDICATION: Positive test. Vaginal bleeding. Vomiting. TECHNIQUE: Ultrasound of the pelvis was performed with transabdominal and transvaginal sonography in the axial and sagittal planes. COMPARISON: No prior study is available for comparison. FINDINGS: There is a single intrauterine gestational sac. pole and yolk sac are present. There is heart motion. heart rate is 150 beats per minute. [place]-rump length is 1.38 cm. Mean sac diameter is 2.66 cm. There is a subchorionic hemorrhage measuring up to 1.1 cm in maximal dimension. Menstrual age by ultrasound dates is 7 weeks 5 days. This indicates an expected date of delivery of 12/10/2017. The right ovary appears normal measuring 2.7 x 2.0 x 1.9 cm. The left ovary appears normal measuring 2.7 x 1.4 x 1.3 cm. Color Doppler and pulsed Doppler sonography demonstrate normal flow to the ovaries. There is no other pelvic mass or free fluid. IMPRESSION: 1. Single live intrauterine gestation of 7 weeks 5 days menstrual age by ultrasound dates. 2. Expected date of delivery is 12/10/2017. 3. Subchorionic hemorrhage measuring up to 1.1 cm. RPTAT: QQ .Randy Nayak MD, MD Date Time Electronically viewed and signed by .Randy Nayak MD, MD on 04/28/2017 17:45 .R/ CC: LIANA HALL MD Procedures/MDM 27-year-old female at 7 weeks and 5 days, presents complaining of 4 weeks with persistent hyperemesis. Vital signs stable, Physical exam unremarkable except for mild distress due to nausea. Differential diagnosis include but not limited to: Gastroenteritis, food poisoning, UTI, hyperemesis gravidarum. Pertinent Data: Labs: UA: Elevated WBCs and 1+ leukocyte esterase CBC: normal, BMP: Normal kidney function, normal electrolytes. Radiology: 1. Single live intrauterine gestation of 7 weeks 5 days menstrual age by ultrasound dates. 2. Expected date of delivery is 12/10/2017. 3. Subchorionic hemorrhage measuring up to 1.1 cm. Examination and clinical presentation consistent most likely with hyperemesis gravidarum and mild UTI. During the ED course the patient remained stable, no new complaints. The patient received treatment with IV fluids and Zofran presenting overall improvement of the symptoms. Results and clinical impression discussed with patient who agrees with management. The patient is stable to be treated outpatient and will be discharged home with a Rx for Diclegis, some side effects of prescribed medications (headache, rash, nausea, vomiting, diarrhea, drowsiness, habituation , bleeding, hypertension, interactions with other medications) were reviewed. The patient was instructed to follow up with the primary care provider in the next 48h. If symptoms persist, worsen or new symptoms develop, then patient should return to the ED immediately. Instructions explained and given directly by me to the patient in Kosovan with acknowledgment and demonstrated understanding. Disclaimer: Inadvertent spelling and grammatical errors are likely due to EHR/ dictation software use and do not reflect on the overall quality of patient care. Also, please note that the electronic time recorded on this note does not necessarily reflect the actual time of the patient encounter. Departure Diagnosis: Primary Impression: Hyperemesis gravidarum Additional Impression: UTI (urinary tract infection) Condition: Stable Additional Instructions: Call your primary care doctor TOMORROW for an appointment during the next 1-2 days. See the doctor sooner or return here if your condition worsens before your appointment time. Thank you very much for allowing us to participate in your care. Your health and safety is our top priority at [facility]. Have prescriptions filled and follow precisely the directions on the label. Follow-up with primary care provider during the next 4 days and bring all the information and medications prescribed. If illness has not improved in 2 days, then make an appointment with primary care provider. If the provider is unavailable, return to the Emergency Department immediately. LIANA HALL MD Apr 28, 2017 16:59
[2017-04-28] MEDS ORDERED: SOD CHLORIDE 0.9% 1,000 ML IV STA (17:03)
--- NOTE | 2017-04-28 17:45 | RADRPT ---
PROCEDURE: OB Ultrasound. CLINICAL INDICATION: Positive test. Vaginal bleeding. Vomiting. TECHNIQUE: Ultrasound of the pelvis was performed with transabdominal and transvaginal sonography in the axial and sagittal planes. COMPARISON: No prior study is available for comparison. FINDINGS: There is a single intrauterine gestational sac. pole and yolk sac are present. There is heart motion. heart rate is 150 beats per minute. [place]-rump length is 1.38 cm. Mean sac diameter is 2.66 cm. There is a subchorionic hemorrhage measuring up to 1.1 cm in maximal d imension. Menstrual age by ultrasound dates is 7 weeks 5 days. This indicates an expected date of delivery of 12/10/2017. The right ovary appears normal measuring 2.7 x 2.0 x 1.9 cm. The left ovary appears normal measuring 2.7 x 1.4 x 1.3 cm. Color Doppler and pulsed Doppler sonography demonstrate normal flow to the ovaries. There is no other pelvic mass or free fluid. IMPRESSION: 1. Single live intrauterine gestation of 7 weeks 5 days menstrual age by ultrasound dates. 2. Expected date of delivery is 12/10/2017. 3. Subchorionic hemorrhage measuring up to 1.1 cm. RPTAT: QQ .Randy Nayak MD, Date Time Electronically viewed and signed by .Randy Nayak MD, on 04/28/2017 17:45 .R/
[2017-04-28 17:47] LABS: BASOPHILS % 0.2 % (0.0-2.0); EOSINOPHILS % 0.5 % (0.0-7.0); HEMATOCRIT 36.4 % (37.0-47.0); HEMOGLOBIN 12.8 g/dl (12.0-16.0); LYMPHOCYTES # 1.5 10^3/ul (0.8-2.9); LYMPHOCYTES % 27.3 % (15.0-51.0); MEAN CORPUSCULAR HEMOGLOBIN 30.3 pg (29.0-33.0); MEAN CORPUSCULAR HGB CONC 35.2 g/dl (32.0-37.0); MEAN CORPUSCULAR VOLUME 86.3 fl (82.0-101.0); MEAN PLATELET VOLUME 10.1 fl (7.4-10.4); MONOCYTE # 0.4 10^3/ul (0.3-0.9); MONOCYTES % 6.6 % (0.0-11.0); NEUTROPHIL # 3.7 10^3/ul (1.6-7.5); NEUTROPHILS % 65.2 % (39.0-77.0); PLATELET COUNT 232 10^3/UL (140-415); RED BLOOD COUNT 4.22 10^6/ul (4.20-5.40); RED CELL DISTRIBUTION WIDTH 11.6 % (11.5-14.5); WHITE BLOOD COUNT 5.6 10^3/ul (4.8-10.8)
[2017-04-28 18:04] LABS: CALCIUM 9.7 mg/dl (8.4-10.2); CREATININE 0.65 mg/dl (0.44-1.00); POTASSIUM 4.1 mmol/L (3.5-5.1)
[2017-04-28 18:18] LABS: ADD UMIC YES; UR ASCORBIC ACID NEGATIVE (NEGATIVE); UR BACTERIA FEW /HPF (NONE SEEN); UR BILIRUBIN (Dip) NEGATIVE (NEGATIVE); UR BLOOD (Dip) NEGATIVE (NEGATIVE); UR CLARITY SLIGHTLY CLOUDY (CLEAR); UR COLOR YELLOW (YELLOW); UR GLUCOSE (Dip) 1+ mg/dL (NEGATIVE); UR KETONES (Dip) 1+ mg/dL (NEGATIVE); UR LEUKOCYTE ESTERASE (Dip) 1+ Leu/ul (NEGATIVE); UR MUCUS MANY /HPF (NONE SEEN); UR NITRITE (Dip) NEGATIVE (NEGATIVE); UR RBC 4 /HPF (0-5); UR SPECIFIC GRAVITY (Dip) 1.027 (1.003-1.030); UR SQUAMOUS EPITHELIAL CELL FEW /HPF (FEW); UR TOTAL PROTEIN (Dip) NEGATIVE (NEGATIVE); UR UROBILINOGEN (Dip) 1+ mg/dL (NEGATIVE)
[2017-04-28] MEDS ORDERED: DOXY1TAB3 PO (19:34)
[2017-04-28] MEDS ORDERED: NITR-58 PO (19:34)
[2017-04-28 19:47] VITALS: BP 103/57; PULSE 62; RESP 18; TEMP 98.6
== END 2017-04-28 19:48 | disposition home or self-care (01) ==
LOC: FTE 14:33
DX: O21.0 Mild hyperemesis gravidarum (principal); O23.41 Unspecified infection of urinary tract in pregnancy, first trimester; Z3A.01 Less than 8 weeks gestation of pregnancy
CPT/HCPCS: 76801; 80048; 81001; 85025; 96374; J2405; J7030; Z7502; J7040

== ENCOUNTER 2017-05-16 00:51 | Emergency (ER) | END 2017-05-16 05:45 | disposition home or self-care (01) ==

== ENCOUNTER 2017-06-16 01:52 | Emergency (ER) | END 2017-06-16 09:22 | disposition home or self-care (01) ==

== ENCOUNTER 2017-07-04 19:33 | Emergency (ER) | END 2017-07-04 22:41 | disposition home or self-care (01) ==

== ENCOUNTER 2017-12-10 14:00 | Outpatient (CLI) | END 2017-12-10 15:15 | disposition home or self-care (01) ==

== ENCOUNTER 2017-12-12 09:47 | Inpatient (IN) | END 2017-12-15 13:35 | disposition home or self-care (01) | DRG 775 ==

== ENCOUNTER 2018-07-23 09:05 | Emergency (ER) | payer MEDICAID ==
[~2018-07-23] VITALS: Ht 152.4 cm; Wt 58.6 kg
[~2018-07-23 09:05] MED LIST changes: -CYCL-319 PO; -DOCU-144 PO; -HYDR-3498 PO; -HYDR-906 PO; -IBUP-1542 PO; -LEVO500T72 PO; -MULT-552 PO; -NITR-58 PO; -ONDA4TAB14 PO; -ONDA4TAB35 PO; -OXYC-279 PO; +PREN1TAB13 PO
[2018-07-23 09:18] VITALS: BP 113/53; PULSE 109; RESP 20; Ht 152.4 cm; Wt 58.6 kg
[2018-07-23] MEDS ORDERED: ONDANSETRON (ODT) 4 MG TAB ODT STA (09:44)
[2018-07-23] MEDS ORDERED: ACETAMINOPHEN 500 MG TAB PO STA (09:44)
[2018-07-23] MEDS ORDERED: IBUPROFEN 800 MG TAB PO ONE (10:00)
[2018-07-23] MEDS ORDERED: IBUP-1542 PO (12:14)
[2018-07-23] MEDS ORDERED: ONDA4TAB14 PO (12:14)
[2018-07-23] MEDS ORDERED: ACET325T33 PO (12:14)
--- NOTE | 2018-07-23 13:12 | ERD ---
ER Documentation Chief Complaint Chief Complaint Complains of abdominal pain and vomiting since last night HPI 28-year-old female presenting with abdominal pain and vomiting since last night. Patient has had body aches and feels very weak. She took Tylenol with no alleviation. She describes a fever 102.7 prior to her visit today. Patient has had no cough no runny nose. Denies any abdominal pain. Denies vomiting. Denies changes in urination or bowel movement. Denies medical problems. NKDA. Surgical history denies. Social history denies ROS All systems reviewed and are negative except as per history of present illness. Medications Home Meds Active Scripts Ibuprofen* (Motrin*) 600 Mg Tab, 600 MG PO Q6, #30 TAB Prov:ELIDIA LUCERO PA-C 07/23/18 Acetaminophen* (Tylenol*) 325 Mg Tablet, 2 TAB PO Q6 PRN for PAIN AND OR ELEVATED TEMP, #20 TAB Prov:ELIDIA LUCERO PA-C 07/23/18 Ondansetron (Ondansetron Odt) 4 Mg Tab.rapdis, 4 MG PO Q6H PRN for NAUSEA AND/OR VOMITING, #10 TAB Prov:ELIDIA LUCERO PA-C 07/23/18 Reported Medications Pnv95/Ferrous Fumarate/FA ( Vitamins Tablet) 1 Each Tablet, 1 EACH PO, TAB 05/16/17 Allergies Allergies: Coded Allergies: No Known Allergy (Unverified , 07/23/18) PMhx/Soc History of Surgery: No Anesthesia Reaction: No Hx Neurological Disorder: No Hx Respiratory Disorders: No Hx Cardiac Disorders: No Hx Psychiatric Problems: No Hx Miscellaneous Medical Probl: No Hx Alcohol Use: No Hx Substance Use: No Hx Tobacco Use: No Smoking Status: Never smoker FmHx Family History: No diabetes, No coronary disease, No other Physical Exam Vitals Vital Signs Date Temp Pulse Resp B/P (MAP) Pulse Ox O2 O2 Flow FiO2 Time Delivery Rate 07/23/18 98.6 109 20 113/53 98 09:18 (73) Physical Exam GENERAL: The patient is well-appearing, well-nourished, in no acute distress HEENT: Atraumatic. Conjunctivae are pink. Pupils equal, round, and reactive to light. There is no scleral icterus. Tympanic membranes clear bilaterally. Oropharynx clear. NECK: C-spine is soft and supple. There is no meningismus. There is no cervical lymphadenopathy. CHEST: Clear to auscultation bilaterally. There are no rales, wheezes or rhonchi. HEART: Regular rate and rhythm. No murmurs, clicks, rubs or gallops. No S3 or S4. ABDOMEN:Soft, nontender and nondistended. Good bowel sounds. No rebound or guarding. No gross peritonitis. No gross organomegaly or masses. Result Diagram: 07/23/18 1120 07/23/18 1120 Results 24 hrs Laboratory Tests Test 07/23/18 10:16 07/23/18 10:17 07/23/18 11:20 Bedside Urine pH (LAB) 6.0 Bedside Urine Protein (LAB) 1+ Bedside Urine Glucose (UA) Negative Bedside Urine Ketones (LAB) 2+ Bedside Urine Blood 2+ Bedside Urine Nitrite (LAB) Negative Bedside Urine Leukocyte Esterase Negative (L POC Beta HCG, Qualitative NEGATIVE White Blood Count 14.1 10^3/ul Red Blood Count 4.50 10^6/ul Hemoglobin 13.1 g/dl Hematocrit 39.0 % Mean Corpuscular Volume 86.7 fl Mean Corpuscular Hemoglobin 29.1 pg Mean Corpuscular 33.6 g/dl Hemoglobin Concent Red Cell Distribution Width 12.5 % Platelet Count 184 10^3/UL Mean Platelet Volume 10.5 fl Immature Granulocytes % 0.900 % Neutrophils % % Segmented Neutrophils % (Manual) 65 % Band Neutrophils % (Manual) 25 % Lymphocytes % % Lymphocytes % (Manual) 3 % Reactive Lymphocytes % (Manual) 3 % Monocytes % % Monocytes % (Manual) 3 % Eosinophils % % Basophils % % Basophils % (Manual) 1 % Nucleated Red Blood Cells % 0.0 /100WBC Immature Granulocytes # 0.130 10^3/ul Neutrophils # 10^3/ul Neutrophils # (Manual) 9.7 10^3/ul Band Neutrophils # 3.5 10^3/ul Lymphocytes (Manual) 0.4 10^3/ul Lymphocytes # 10^3/ul Reactive Lymphocytes # 0.4 10^3/ul Monocytes # 10^3/ul Monocytes # (Manual) 0.4 10^3/ul Eosinophils # 10^3/ul Basophils # 10^3/ul Basophils # (Manual) 0.1 10^3/ul Nucleated Red Blood Cells # 10^3/ul Platelet Estimate NORMAL Polychromasia 1+ Poikilocytosis 3+ Ovalocytes 1+ Sodium Level 139 mmol/L Potassium Level 3.8 mmol/L Chloride Level 107 mmol/L Carbon Dioxide Level 23 mmol/L Anion Gap 9 Blood Urea Nitrogen 18 mg/dl Creatinine 0.62 mg/dl Est Glomerular Filtrat Rate mL/min > 60 mL/min Glucose Level 121 mg/dl Calcium Level 9.5 mg/dl Total Bilirubin 0.9 mg/dl Direct Bilirubin 0.00 mg/dl Indirect Bilirubin 0.9 mg/dl Aspartate Amino Transf (AST/SGOT) 29 IU/L Alanine 23 IU/L Aminotransferase (ALT/SGPT) Alkaline Phosphatase 138 IU/L Total Protein 7.8 g/dl Albumin 4.3 g/dl Globulin 3.50 g/dl Albumin/Globulin Ratio 1.22 Current Medications Medications Dose Sig/Ml Start Time Status Last (Trade) Ordered Route PRN Stop Time Admin Dose Reason Admin 1,000 mg ONCE STAT 07/23/18 DC 07/23/18 Acetaminophen PO 09:44 10:11 (Tylenol 07/23/18 09:45 Tab) Ibuprofen 800 mg ONCE ONCE 07/23/18 DC 07/23/18 (Motrin) PO 10:00 10:11 07/23/18 10:01 Ondansetron 4 mg ONCE STAT 07/23/18 DC 07/23/18 HCl (Zofran ODT 09:44 10:11 Odt) 07/23/18 09:45 Procedures/MDM ER course: Blood work normal. Influenza negative. MDM: 28-year-old female presenting with body aches and documented fever at home. I have low suspicion for pneumonia. I have low suspicion for meningitis or sepsis. I have low suspicion for acute abdominal emergency. Patient symptoms are likely associated with viral syndrome. Patient is discharged stricter precautions and told to follow-up with primary care within 1-2 days for close evaluation. Patient is told symptoms change or worsen to return immediately to the ER. All questions answered at discharge Departure Diagnosis: Primary Impression: Viral syndrome Additional Impression: Nausea and vomiting Condition: Stable Patient Instructions: Nausea and Vomiting-Adult Referrals: COMMUNITY CLINICS YOU HAVE RECEIVED A MEDICAL SCREENING EXAM AND THE RESULTS INDICATE THAT YOU DO NOT HAVE A CONDITION THAT REQUIRES URGENT TREATMENT IN THE EMERGENCY DEPARTMENT. FURTHER EVALUATION AND TREATMENT OF YOUR CONDITION CAN WAIT UNTIL YOU ARE SEEN IN YOUR DOCTORS OFFICE WITHIN THE NEXT 1-2 DAYS. IT IS YOUR RESPONSIBILITY TO MA KE AN APPOINTMENT FOR FOLOW-UP CARE. IF YOU HAVE A PRIMARY DOCTOR --you should call your primary doctor and schedule an appointment IF YOU DO NOT HAVE A PRIMARY DOCTOR YOU CAN CALL OUR PHYSICIAN REFERRAL HOTLINE AT IF YOU CAN NOT AFFORD TO SEE A PHYSICIAN YOU CAN CHOSE FROM THE FOLLOWING [facility] CLINICS [facility] [address] [facility] [address] [facility] [address] [facility] [address] [facility] [address] [facility] [address] [address] [facility]. [address] Additional Instructions: FOLLOW UP WITH YOUR PRIMARY CARE PHYSICIAN TOMORROW.Return to this facility if you are not improving as expected. ELIDIA LUCERO PA-C Jul 23, 2018 13:12
== END 2018-07-23 18:11 | disposition home or self-care (01) ==
LOC: FTE 09:05
DX: B34.9 Viral infection, unspecified (principal)
CPT/HCPCS: 80053; 81003; 81025; 85025; 87400; Z7610; 99283